=== PATIENT | female | born 1980 | race Caucasian/White ===

== ENCOUNTER → 2018-01-06 | Outpatient (CLI) | payer BC ==
--- NOTE | 2018-01-06 18:14 | Diagnostic Imaging Report ---
INDICATION: Right breast pain. EXAMINATION: Bilateral breast digital diagnostic mammogram with CAD. 3D tomographic images were obtained and reviewed. The current study was also evaluated with a Computer Aided Detection (CAD) system. COMPARISON: This study was compared to the prior exam of 04/25/2014. FINDINGS: At this time the patient does complain of pain in both the lateral and medial aspects of the right breast. Markers are placed over the areas of concern. In these regions, there is no abnormality to account for the patient's pain. There is no primary or second sign of malignancy noted either. There are scattered fibroglandular densities in both breasts which could obscure a lesion. When compared to the prior study, there has been no significant change. There is no primary or secondary sign of malignancy noted. IMPRESSION: 1. There is no evidence for malignancy and there is no acute abnormality involving the right breast to account for the patient's pain. 2. Ultrasound of the right breast is pending for further study. ACR BI-RADS Category 0: Incomplete. (Needs additional imaging evaluation). Result letter will be mailed to the patient. Note: At least 10% of breast cancer is not imaged by mammography. Dictated by: Dictated on workstation # [id number]
--- NOTE | 2018-01-06 18:21 | Diagnostic Imaging Report ---
INDICATION: Right breast pain. EXAMINATION: Ultrasound of the right breast. FINDINGS: By history, patient has pain in the lateral and medial aspects of the right breast. The diagnostic mammogram performed earlier today failed to show any sign of malignancy or an acute abnormality. On this study, there is no discrete solid or cystic mass within the breast. There is no evidence for an abscess either. IMPRESSION: There is no evidence for malignancy or for an acute abnormality. Clinical followup is recommended. ACR BI-RADS Category 1: Negative. Result letter will be mailed to the patient. Note: At least 10% of breast cancer is not imaged by mammography. Dictated by: Dictated on workstation # [id number]
== END ==
LOC: RAD 08:32
PROVIDERS: ATTEND Nurse Practitioner
DX: N64.4 Mastodynia (principal)
CPT/HCPCS: 77066

== ENCOUNTER → 2020-02-16 | Outpatient (CLI) | payer BC ==
--- NOTE | 2020-02-16 11:22 | Diagnostic Imaging Report ---
INDICATION: Routine screening. COMPARISON: 05/09/2017 and 04/25/2014. TECHNIQUE: 2D and 3D bilateral screening mammography was performed with CAD. FINDINGS: Scattered fibroglandular densities are identified bilaterally. Scattered benign calcifications are noted. No mass or malignant appearing microcalcifications are seen. The axillae are unremarkable. IMPRESSION: No mammographic features suspicious for malignancy are identified. ACR BI-RADS Category 2: Benign findings. Result letter will be mailed to the patient. Note: At least 10% of breast cancer is not imaged by mammography. Dictated by: Dictated on workstation # [id number]
== END ==
LOC: RAD 09:45
PROVIDERS: ATTEND Nurse Practitioner
DX: Z12.31 Encounter for screening mammogram for malignant neoplasm of breast (principal)
CPT/HCPCS: 77063; 77067